=== PATIENT | female | born 1970 | race Caucasian/White ===

== ENCOUNTER 2016-08-27 14:10 | Emergency (ER) | payer OTHER ==
[~2016-08-27] VITALS: Ht 170.2 cm; Wt 113.4 kg
[~2016-08-27 14:10] MED LIST: LISINOPRIL 40MG; [UNRECOGNIZED DRUG - OTHER]
[2016-08-27 14:57] LABS: Basophils # (auto) 0 uL; Basophils % (auto) 0.2 % (0.0-2.0); Eosinophils # (auto) 0.2 uL; Eosinophils % (auto) 1.3 % (0.0-7.0); Hematocrit 45.6 % (36.0-46.0); Lymphocytes # (auto) 2.1 uL; Lymphocytes % (auto) 12.7 % (10.0-50.0); Mean Corpuscular Hemoglobin 28.6 pg (28.0-32.0); Mean Corpuscular Hgb Conc. 32.9 g/dL (32.0-36.0); Mean Platelet Volume 8.4 fL (7.4-10.4); Monocytes # (auto) 0.5 uL; Monocytes % (auto) 3.2 % (0.0-12.0); Neutrophils # (auto) 13.9 uL; Neutrophils % (auto) 82.6 % (37.0-80.0); Platelet Count (auto) 379 10^3/uL (140-450); Red Cell Distribution Width 13.2 % (11.6-16.0); White Blood Cell 16.8 10^3/uL (4.4-10.8)
[2016-08-27 15:11] LABS: Albumin 4.1 g/dL (3.4-5.0); BUN/Creatinine Ratio 11.9; Calcium 8.5 mg/dL (8.5-10.1); Potassium 3.9 mmol/L (3.5-5.1)
[2016-08-27 15:14] LABS: Bilirubin, Total 0.9 mg/dL (0.2-1.0); Total Protein 7.9 g/dL (6.4-8.2)
[2016-08-27 15:33] LABS: Urine Bilirubin Negative (Negative); Urine Blood 3+ /uL (Negative); Urine Color Yellow (Yellow); Urine Glucose Normal (Normal); Urine Ketone 1+ (Negative); Urine Mucus FEW (None Seen); Urine Nitrite Negative (Negative); Urine RBC 911 /hpf (0 - 4); Urine Squamous Epithelial Cell FEW /hpf (<5); Urine Urobilinogen Normal (Negative); Urine pH 5.5 (5.0-8.0)
[2016-08-28 02:21] VITALS: BP 151/83
== END 2016-08-28 02:36 | disposition home or self-care (01) ==
LOC: ER 14:11
DX: N20.2 Calculus of kidney with calculus of ureter (principal); R73.9 Hyperglycemia, unspecified; Z88.6 Allergy status to analgesic agent; E78.5 Hyperlipidemia, unspecified; I10 Essential (primary) hypertension; J44.9 Chronic obstructive pulmonary disease, unspecified; F12.10 Cannabis abuse, uncomplicated; Z79.899 Other long term (current) drug therapy
CPT/HCPCS: 36415; 80053; 81001; 85025

== ENCOUNTER → 2017-01-20 | Outpatient (CLI) | payer OTHER ==
[~2017-01-20] MED LIST changes: +IOHEXOL 350 MG/ML 100ML IJ ONE; +METOPROLOL TARTRATE 1MG/1ML-5ML VIAL IV ONE; +NITROGLYCERIN 0.4 MG SL TAB SL ONE
[2017-01-20 08:28] LABS: Basophils # (auto) 0 uL; Basophils % (auto) 0.3 % (0.0-2.0); Eosinophils # (auto) 0.3 uL; Eosinophils % (auto) 2.6 % (0.0-7.0); Hematocrit 45.9 % (36.0-46.0); Hemoglobin 15.5 g/dL (12.2-16.2); Lymphocytes # (auto) 2.7 uL; Lymphocytes % (auto) 26.9 % (10.0-50.0); Mean Corpuscular Hemoglobin 29.6 pg (28.0-32.0); Mean Corpuscular Hgb Conc. 33.7 g/dL (32.0-36.0); Mean Corpuscular Volume 87.9 fL (80.0-100.0); Mean Platelet Volume 8.4 fL (7.4-10.4); Monocytes # (auto) 0.6 uL; Monocytes % (auto) 6.2 % (0.0-12.0); Neutrophils # (auto) 6.5 uL; Platelet Count (auto) 366 10^3/uL (140-450); Red Cell Distribution Width 13.7 % (11.6-16.0); White Blood Cell 10.1 10^3/uL (4.4-10.8)
[2017-01-20 08:49] LABS: BUN/Creatinine Ratio 13.2; Bilirubin, Total 0.5 mg/dL (0.2-1.0); Potassium 3.8 mmol/L (3.5-5.1); Total Protein 8.2 g/dL (6.4-8.2)
== END | disposition home or self-care (01) ==
LOC: CT 07:54
PROVIDERS: ATTEND Internal Medicine Cardiovascular Disease
DX: R07.9 Chest pain, unspecified (principal); E78.5 Hyperlipidemia, unspecified
CPT/HCPCS: 36415; 75574; 80053; 80061; 83036; 84443; 84702; 85025

== ENCOUNTER → 2017-01-27 | Outpatient (CLI) | payer OTHER ==
[~2017-01-27] MED LIST changes: -IOHEXOL 350 MG/ML 100ML IJ ONE; -METOPROLOL TARTRATE 1MG/1ML-5ML VIAL IV ONE; -NITROGLYCERIN 0.4 MG SL TAB SL ONE
== END | disposition home or self-care (01) ==
LOC: XYW 08:11
PROVIDERS: ATTEND Internal Medicine Cardiovascular Disease
DX: I35.8 Other nonrheumatic aortic valve disorders (principal)
CPT/HCPCS: 93306